=== PATIENT | female | born 1975 | race Caucasian/White ===

== ENCOUNTER → 2017-08-30 | Outpatient (CLI) | payer BC | LOC: M ADAMS 11:39 | DX: M50.321 Other cervical disc degeneration at C4-C5 level (principal) | CPT/HCPCS: 72050 ==

== ENCOUNTER → 2017-10-16 | Outpatient (REF) | payer BC ==
[2017-10-16 16:05] LABS: PLATELET COUNT, AUTOMATED 309 10^3/uL (150-450)
[2017-10-16 16:17] LABS: PARTIAL THROMBOPLASTIN TIME 32.2 SECONDS (25.4-37.6); PROTHROMBIN TIME 14.4 SECONDS (12.1-14.4)
== END ==
LOC: M LABDRAW1 11:59
DX: Z79.01 Long term (current) use of anticoagulants (principal)
CPT/HCPCS: 85049

== ENCOUNTER → 2019-08-17 | Outpatient (REF) | payer BC ==
[2019-08-17 17:39] LABS: PLATELET COUNT, AUTOMATED 338 10^3/uL (150-450)
[2019-08-17 17:52] LABS: INR 1.09; PROTHROMBIN TIME 13.8 SECONDS (11.8-14.0)
[2019-08-17 17:53] LABS: PARTIAL THROMBOPLASTIN TIME 33.1 SECONDS (25.0-38.4)
== END ==
LOC: M LABDRWAD 17:23
PROVIDERS: ATTEND Physician Assistant
DX: M47.892 Other spondylosis, cervical region (principal)

== ENCOUNTER → 2019-09-15 | Outpatient (CLI) | payer BC | LOC: M LABSMTC 10:01 | PROVIDERS: ATTEND Physical Medicine & Rehabilitation | DX: Z01.818 Encounter for other preprocedural examination (principal); Z11.59 Encounter for screening for other viral diseases ==

== ENCOUNTER → 2021-05-14 | Outpatient (REF) | payer BC ==
[2021-05-14 13:04] LABS: FOLLICLE STIMULATING HORMONE 15.5 mIU/mL; LUTEINIZING HORMONE 7.2 mIU/mL
== END ==
LOC: M LAB REF 12:10
PROVIDERS: ATTEND Internal Medicine
DX: N92.6 Irregular menstruation, unspecified (principal)

== ENCOUNTER → 2021-06-03 | Outpatient (CLI) | payer BC | LOC: M WHC 12:39 | PROVIDERS: ATTEND Internal Medicine | DX: N92.6 Irregular menstruation, unspecified (principal) ==

== ENCOUNTER → 2022-12-24 | Outpatient (REF) | payer BC ==
[2022-12-25 14:21] LABS: FOLLICLE STIMULATING HORMONE 109.5 mIU/ML
[2022-12-25 14:22] LABS: LUTEINIZING HORMONE 45.6 mIU/ML
== END ==
LOC: M LAB REF 12:13
PROVIDERS: ATTEND Internal Medicine
DX: M54.2 Cervicalgia (principal); N92.6 Irregular menstruation, unspecified

== ENCOUNTER → 2023-09-02 | Outpatient (REF) | payer BC | LOC: M LAB REF 11:15 | PROVIDERS: ATTEND Nurse Practitioner Family | DX: R30.0 Dysuria (principal) ==

== ENCOUNTER → 2023-09-22 | Outpatient (CLI) | payer BC ==
[~2023-09-22] MED LIST: E-Z-GAS II EFFERVESCENT PACKET (SODIUM BICARB./CITRIC ACID/SIMETHICONE) As Ordered ONE; E-Z-HD 98% w/w 340GM SUSP BTL As Ordered ONE; E-Z-PAQUE 96% w/w SUSP 176GM BTL As Ordered ONE
== END ==
LOC: M RAD 08:11
PROVIDERS: ATTEND Surgery
DX: R10.13 Epigastric pain (principal)

== ENCOUNTER 2023-10-15 09:22 | Day surgery (SDC) | payer BC ==
[~2023-10-15] VITALS: Ht 162.6 cm; Wt 66.3 kg
[~2023-10-15 09:22] MED LIST changes: +BUPR-368 PO; +CYAN500T14 PO; -E-Z-GAS II EFFERVESCENT PACKET (SODIUM BICARB./CITRIC ACID/SIMETHICONE) As Ordered ONE; -E-Z-HD 98% w/w 340GM SUSP BTL As Ordered ONE; -E-Z-PAQUE 96% w/w SUSP 176GM BTL As Ordered ONE; +GABA-282 PO; +MELO15TA28 PO; +SEMA1PEN4 SQ; +SPIR100T3 PO; +VENTAER INH; +VITA-243 PO; +VITA100093 PO
[2023-10-15] MEDS: NS 1,000 ML IV ONE (10:05)
[2023-10-15] MEDS ORDERED: fentaNYL 100 MCG/2 ML INJECTION As Ordered ONE (10:25)
[2023-10-15] MEDS ORDERED: LIDOCAINE 2% 100MG/5ML SDV (FOR ANES.) As Ordered ONE (10:25)
[2023-10-15] MEDS ORDERED: propofoL 200 MG/20 ML VIAL As Ordered ONE (10:25)
[2023-10-15 10:48] VITALS: TEMP 97.1
[2023-10-15 11:04] VITALS: BP 107/55; O2SAT 99
== END 2023-10-15 11:09 | disposition home or self-care (01) ==
LOC: M OPP 09:22
PROVIDERS: ATTEND Surgery
DX: R10.84 Generalized abdominal pain (principal); R11.0 Nausea; Z79.1 Long term (current) use of non-steroidal anti-inflammatories (NSAID); Z79.51 Long term (current) use of inhaled steroids; Z79.85 Long-term (current) use of injectable non-insulin antidiabetic drugs; Z79.891 Long term (current) use of opiate analgesic; Z79.899 Other long term (current) drug therapy
CPT/HCPCS: 43235; J3010

== ENCOUNTER → 2023-12-21 | Outpatient (REF) | payer BC ==
[~2023-12-21] MED LIST changes: +GABA-1172 PO; -GABA-282 PO
[2023-12-21 19:09] LABS: FOLLICLE STIMULATING HORMONE 119.1 mIU/ML; LUTEINIZING HORMONE 74.4 mIU/ML
== END ==
LOC: M LAB REF 12:18
PROVIDERS: ATTEND Internal Medicine
DX: R30.0 Dysuria (principal); N92.6 Irregular menstruation, unspecified